=== PATIENT | female | born 1995 | race Caucasian/White ===

== ENCOUNTER 2016-12-20 10:12 | Emergency (ER) | payer SELFPAY ==
[~2016-12-20] VITALS: Ht 157.5 cm; Wt 55.4 kg
[~2016-12-20 10:12] MED LIST: ALLERGY PILL; BENADRYL25 MG PO; CLARINEX-D 241 EACH PO; FLEXERIL5 MG PO; FLONASE16 G1 BOTH NARES; MUCUS ER600 MG PO; NAPROSYN375 MG PO; NAPROSYN500 MG PO; NAPROXEN500 MG PO; OCEAN NASAL 0.645 ML BOTH NARES; PROAIR HFA8.5 GM IH; TESSALON PERLE100 MG PO
[2016-12-20 10:55] LABS: HEMATOCRIT 41.9 % (36.0-46.0); MCH 30.1 PG (29.0-34.0); MCHC 33.9 G/DL (30.0-36.0); MEAN PLAT.VOLUME 9.1 uM^3 (9.5-12.4); PLATELET COUNT 288 K/uL (156-360); RBC DIS.WIDTH-SD 39.6 % (39-53); RED BLOOD COUNT 4.71 M/uL (3.80-5.20); WHITE BLOOD COUNT 5.6 K/uL (4.1-10.2)
[2016-12-20 11:05] LABS: CHLORIDE 105 mEq/L (99-109); POTASSIUM 4.2 mEq/L (3.7-5.4); SODIUM 138 mEq/L (136-147)
[2016-12-20 11:07] LABS: GLUCOSE 95 mg/dL (70-99)
[2016-12-20 11:08] LABS: ANION GAP 9 MEQ/L (2-14)
[2016-12-20 11:09] LABS: TOTAL BILIRUBIN 0.5 mg/dL (0.0-1.0)
[2016-12-20 11:11] LABS: ADD MIUA? YES; BILIRUBIN NEGATIVE; BLOOD NEGATIVE; COLOR STRAW ((YELLOW)); GLUCOSE (STRIP) NEGATIVE; KETONES NEGATIVE; LEUKOCYTES NEGATIVE; NITRITE NEGATIVE; PROTEIN (STRIP) NEGATIVE; SPECIFIC GRAVITY 1.009 (1.000-1.030); UROBILINOGEN 0.2 MG/DL (0.2-1.0)
[2016-12-20 11:11] LABS: ALKALINE PHOSPHATASE 49 IU/L (3-129); GFR ESTIMATE (CALCULATED) > 59 mL/min/
[2016-12-20 11:12] LABS: UREA NITROGEN (BUN) 7 mg/dL (9-23)
[2016-12-20 11:16] LABS: BACTERIA RARE /HPF; CALCIUM OXALATE CRYSTALS 1+ /HPF; EPITHELIAL CELLS 1+ /HPF; MUCUS TRACE /LPF; RED BLOOD CELLS 0-5 /HPF (0-5); UCUL ADDED? NO; WHITE BLOOD CELLS 0-5 /HPF (0-5)
[2016-12-20 11:19] LABS: QUANTITATIVE HCG < 4.0 MIU/ML
[2016-12-20 11:49] VITALS: BP 119/81
== END 2016-12-20 11:50 | disposition home or self-care (01) ==
LOC: EME 10:12
PROVIDERS: Nurse Practitioner Family
DX: S39.012A Strain of muscle, fascia and tendon of lower back, initial encounter (principal); R10.32 Left lower quadrant pain; X58.XXXA Exposure to other specified factors, initial encounter; R30.0 Dysuria; R11.0 Nausea; R68.83 Chills (without fever); J45.909 Unspecified asthma, uncomplicated
CPT/HCPCS: 80053; 81003; 84702; 85027; 99281; 99284

== ENCOUNTER 2017-02-16 07:49 | Emergency (ER) | payer SELFPAY ==
[~2017-02-16] VITALS: Ht 157.5 cm; Wt 51.7 kg
[2017-02-16 08:07] LABS: HEMATOCRIT 41.7 % (36.0-46.0); HEMOGLOBIN 14.4 G/DL (11.9-15.5); MCH 30.3 PG (29.0-34.0); MCHC 34.5 G/DL (30.0-36.0); MCV 87.6 FL (83-99); PLATELET COUNT 312 K/uL (156-360); RBC DIS.WIDTH-CV 12.1 % (11.8-14.6); RBC DIS.WIDTH-SD 39.3 % (39-53); RED BLOOD COUNT 4.76 M/uL (3.80-5.20); WHITE BLOOD COUNT 6.7 K/uL (4.1-10.2)
[2017-02-16 08:17] LABS: ALBUMIN 4.2 g/dL (3.2-4.8)
[2017-02-16 08:18] LABS: CHLORIDE 103 mEq/L (99-109); SODIUM 137 mEq/L (136-147)
[2017-02-16 08:20] LABS: GLUCOSE 98 mg/dL (70-99); TOTAL PROTEIN 7.4 g/dL (6.4-8.3)
[2017-02-16 08:22] LABS: TOTAL BILIRUBIN 0.5 mg/dL (0.0-1.0)
[2017-02-16 08:23] LABS: ALKALINE PHOSPHATASE 48 IU/L (3-129)
[2017-02-16 08:24] LABS: CREATININE 0.8 mg/dL (0.6-1.3); GFR ESTIMATE (CALCULATED) > 59 mL/min/
[2017-02-16 08:25] LABS: AST (GOT) 11 IU/L (2-34); UREA NITROGEN (BUN) 9 mg/dL (9-23)
[2017-02-16 08:27] LABS: ALT (GPT) 12 IU/L (3-49); LIPASE 29 U/L (1.0-51.0)
[2017-02-16 08:33] LABS: QUANTITATIVE HCG < 4.0 MIU/ML
[2017-02-16 09:51] LABS: APPEARANCE CLOUDY ((CLEAR)); BILIRUBIN NEGATIVE; BLOOD NEGATIVE; COLOR YELLOW ((YELLOW)); GLUCOSE (STRIP) NEGATIVE; KETONES NEGATIVE; LEUKOCYTES NEGATIVE; NITRITE NEGATIVE; PROTEIN (STRIP) NEGATIVE; SPECIFIC GRAVITY 1.013 (1.000-1.030); UROBILINOGEN 0.2 MG/DL (0.2-1.0)
[2017-02-16 10:15] LABS: BACTERIA RARE /HPF; EPITHELIAL CELLS RARE /HPF; MUCUS TRACE /LPF; RED BLOOD CELLS 0-5 /HPF (0-5); UCUL ADDED? NO; WHITE BLOOD CELLS 0-5 /HPF (0-5)
[2017-02-16 12:05] VITALS: BP 118/72
[2017-02-16] MEDS ORDERED: ZOFRAN ODT4 MG PO (12:22)
[2017-02-16] MEDS ORDERED: ZANTAC150 MG PO (12:22)
[2017-02-16] MEDS ORDERED: BENTYL20 MG PO (12:22)
== END 2017-02-16 13:07 | disposition home or self-care (01) ==
LOC: EME 07:49
DX: R10.32 Left lower quadrant pain (principal); R11.0 Nausea; K21.9 Gastro-esophageal reflux disease without esophagitis; F12.90 Cannabis use, unspecified, uncomplicated; J45.909 Unspecified asthma, uncomplicated; F95.2 Tourette's disorder; F90.9 Attention-deficit hyperactivity disorder, unspecified type
CPT/HCPCS: 74020; 76856; 80053; 81003; 83690; 84702; 85027; 93975; 99281; 99285; J1885